=== PATIENT | female | born 1970 | race Caucasian/White ===

== ENCOUNTER 2021-02-26 14:37 | Emergency (ER) | payer MEDICAID, SELFPAY ==
[2021-02-26 14:52] VITALS: BP 111/64; PULSE 80; RESP 18; TEMP 36.8; O2SAT 98; BMI 31.4
--- NOTE | 2021-02-26 18:16 | ED.DENTAL ---
HPI - Dental/Oral General Chief complaint: Dental/Oral Stated complaint: DENTAL ISSUE Time Seen by Provider: 02/26/21 17:46 Source: patient Mode of arrival: ambulatory Limitations: no limitations History of Present Illness HPI Narrative: 50 y/o female presenting with lower dental pain, gum swelling and pain since yesterday. She has poor dental care and most of her teeth have been removed, she has only a few fragments of teeth left on her bottom jaw. She last saw her dentist 1 month ago and needs to get these removed. Yesterday she started having gum pain and saw some white spots around them. No facial swelling, no fevers. She is able to eat and drink ok. She has been taking tylenol with some brief improvement in the pain. MD Complaint: tooth pain Onset (ago): day(s) (1) Duration: constant Severity: moderate Severity scale (1-10): 6 Relieving factors: other Exacerbating factors: chewing Context: history of dental caries and poor dental care Associated symptoms: gum swelling Treatment prior to arrival: oral analgesic Related Data Previous Rx's Medication Instructions Recorded chlorhexidine gluconate 0.12 % 15 ml BUCCAL BID #118 ml 02/26/21 mouthwash (Peridex) ibuprofen 600 mg tablet 600 mg PO Q8H PRN #10 tab 02/26/21 penicillin V potassium 500 mg 500 mg PO TID 7 Days #21 tab 02/26/21 tablet Allergies Allergy/AdvReac Type Severity Reaction Status Date / Time No Known Allergies Allergy Verified 02/26/21 14:52 Review of Systems Constitutional: Constitutional: Denies chills, Denies fever(s) and Denies headache(s) Eyes: Eyes: Reports no additional eye complaints ENT: Reports Normal hearing present, Reports dental pain, Denies otalgia, Denies headache(s), Denies lip swelling, Denies mouth lesions, Reports mouth pain, Denies neck pain, Denies sore throat and Denies throat swelling Cardiovascular: Cardiovascular: Denies chest pain and Denies dyspnea Respiratory: Respiratory: Denies dyspnea Gastrointestinal: Gastrointestinal: Denies nausea and Denies vomiting Musculoskeletal: Musculoskeletal: Denies neck pain Neurologic: Reports Normal hearing present and Denies headache(s) Psychiatric: Psychiatric: Reports depression Hematologic/Lymphatic: Hematologic/Lymphatic: Denies easy bleeding and Denies easy bruising Allergic/Immunologic: Allergic/Immunologic: Denies lip swelling and Denies throat swelling [facility] Social History Social History Advance Directives: No Advance Directives Information Provided: No Physical Exam Vital Signs: Vital Signs: Last Vital Signs Temp 98.2 F 02/26/21 14:52 Pulse 80 02/26/21 14:52 Resp 18 02/26/21 14:52 BP 111/64 02/26/21 14:52 Pulse Ox 98 02/26/21 14:52 Body Mass Index 31.4 Appearance: Alert. Oriented X3. No acute distress. Eyes: Pupils equal, round and reactive to light. ENT: moist mucus membranes, decaying dental stubs of lower central teeth, lateral incisors and 1st molar, brown and tender with associated gingival swelling and tenderness, no fluctuance or discharge Neck: Normal inspection. Neck supple. No LAD CVS: Normal heart rate and rhythm. Pulses normal. Respiratory: No respiratory distress. Breath sounds normal. Skin: Skin warm and dry. Normal skin color. Normal skin turgor. No rashes. Extremities: No lower extremity edema. Neuro: Oriented X 3. No motor deficit. No sensory deficit. Neuro: Cranial nerves: Yes Normal hearing present Course Course Course Narrative: 50 y/o female presenting with acute on chronic dental pain with multiple decaying teeth. She has a dentist to follow up. There was no dental abscess to drain on exam. Will treat with empiric abx, peridex and dental follow up. Stable for d/c home. Critical Care Time Critical Care Time Critical Care Time: No Discharge Plan Discharge Clinical Impression: Dental decay, Acute gingivitis Patient Disposition: Home, Self-Care Instructions: Gingivitis (ED), Toothache (ED) Additional Instructions: Take all of the medications as prescribed. Recommend Tylenol 1,000 mg every 6 hours around the clock. Do not exceed 4,000 mg in a 24 hour period. Follow up with your dentist ADIN Recommend over the counter topical Orajel as needed for pain Prescriptions: New penicillin V potassium 500 mg tablet 500 mg PO TID 7 Days Qty: 21 RF: 0 ibuprofen 600 mg tablet 600 mg PO Q8H PRN (Reason: pain) Qty: 10 RF: 0 chlorhexidine gluconate [Peridex] 0.12 % mouthwash 15 ml buccal BID Qty: 118 RF: 0
== END 2021-02-26 18:34 | disposition home or self-care (01) ==
PROVIDERS: Emergency Provider Emergency Medicine
DX: K02.9 Dental caries, unspecified (principal); K05.00 Acute gingivitis, plaque induced
CPT/HCPCS: 99282